=== PATIENT | male | born 2000 | race American Indian/Alaskan Native ===

== ENCOUNTER 2022-01-13 15:06 | Emergency (ER) | payer SELFPAY ==
--- NOTE | 2022-01-13 17:06 | Emergency Department Report ---
Blank Doc - Documentation Documentation: 21-year-old male that presents with right shoulder pain. Exam shows suspected dislocation 1- This is a initial triage assessment/medical screening only. Full assessment and work-up will be completed once the patient is in proper hospital gown, ED bed and in a private room setting. This initial assessment/diagnostic orders/clinical plan/ treatment(s) is/are subject to change based on pt's health status, clinical progression and re-assessment by fellow clinical providers in the ED. Further treatment and workup at subsequent clinical providers discretion. Patient/guardians urged not to elope from ED as their condition may be serious if not clinically assessed and managed. 2-x-rays The patient was evaluated in the emergency department for symptoms described in the history of present illness. He/she was evaluated in the context of the global COVID-19 pandemic, which necessitated consideration that the patient might be at risk for infection with the virus that causes COVID-19. Institutional protocols and algorithms that pertain to the evaluation of patients at risk for COVID-19 are in a state of rapid change based on information released by regulatory bodies including the CDC and federal and state organizations. These policies and algorithms were followed during the patient's care in the emergency department. Please note that these policies, procedures and recommendations changed on a rapid basis.
--- NOTE | 2022-01-13 17:24 | XRay Report ---
RIGHT SHOULDER 3 VIEW(S) INDICATION / CLINICAL INFORMATION: right shoulder pain. COMPARISON: None available. FINDINGS: BONES / JOINT(S): There is anterior inferior dislocation of the humeral head with respect to the tavares oid. No fracture is seen. No significant arthritis. SOFT TISSUES: No significant abnormality. ADDITIONAL FINDINGS: None. IMPRESSION: 1. Anterior right shoulder dislocation. Signer Name: Neo Joya MD Signed: 01/13/2022 5:20 PM Workstation Name: [id number]
[2022-01-13] MEDS ORDERED: KETAMINE 500 MG/5 ML VIAL MDV IV ONE (17:37)
[2022-01-13] MEDS ORDERED: propofoL 200 MG/20 ML VIAL IV ONE (17:37)
[2022-01-13] MEDS ORDERED: SODIUM CHLORIDE 0.9% 500 ML 500 ML IV ONE (17:37)
[2022-01-13] MEDS ORDERED: ONDANSETRON 4 MG/2 ML INJ IV ONE (17:41)
[2022-01-13] MEDS ORDERED: fentaNYL 100 MCG/2 ML INJ IV ONE (17:41)
--- NOTE | 2022-01-13 18:02 | Emergency Department Report ---
ED Upper Extremity Inj HPI - General Chief Complaint: Extremity Injury, Upper Stated Complaint: SHOULDER INJURY Time Seen by Provider: 01/13/22 16:21 Source: patient, EMS Mode of arrival: Ambulatory Limitations: No Limitations - History of Present Illness Initial Comments: 21-year-old [id number] male with no significant past medical history presents the hospital complaiislocationning of right shoulder pain and deformity that occurred while playing basketball at the gym. Pain is moderate in intensity and worse with movement. no other injury reported. No previous history of right shoulder dislocation - Related Data Previous Rx's Medication Instructions Recorded Last Taken Type Ibuprofen [Motrin] 800 mg PO Q8HR PRN #20 tablet 01/13/22 Unknown Rx Allergies Allergy/AdvReac Type Severity Reaction Status Date / Time No Known Allergies Allergy Verified 01/13/22 15:08 ED Review of Systems ROS: Stated complaint: SHOULDER INJURY Other details as noted in HPI Comment: All other systems reviewed and negative ED Past Medical Hx - Past Medical History Previous Medical History?: No - Social History Smoking Status: Never Smoker - Medications Home Medications: Home Medications Medication Instructions Recorded Confirmed Last Taken Type Ibuprofen [Motrin] 800 mg PO Q8HR PRN #20 tablet 01/13/22 Unknown Rx ED Physical Exam - General Limitations: No Limitations - Other Other exam information: General: No acute distress Head: Atraumatic Eyes: normal appearance ENT: Moist mucous membranes Neck: Normal appearance, no midline tenderness Chest: Clear to auscultation bilaterally CV: Regular rate and rhythm Abdomen: Soft, normal bowel sounds, nontender, nondistended, no rebound or guarding Back: Normal inspection Extremity: Right shoulder deformity. Sensation over deltoid and forearm intact Neuro: Alert O x 3, no facial asymmetry, speech clear, no gross motor sensory deficit Psych: Appropriate behavior Skin: No rash ED Course Vital Signs 01/13/22 01/13/22 01/13/22 15:07 17:24 17:58 Temperature 97.6 F Temperature [ Intra-Procedure ] Temperature [ Post-Procedure] Temperature [ Pre-Procedure] Pulse Rate 68 Pulse Rate [ Intra-Procedure ] Pulse Rate [ Post-Procedure] Pulse Rate [Pre -Procedure] Respiratory 18 22 Rate Respiratory Rate [Intra- Procedure] Respiratory Rate [Post- Procedure] Respiratory Rate [Pre- Procedure] Blood Pressure Blood Pressure [Intra- Procedure] Blood Pressure 110/66 [Left] Blood Pressure [Post-Procedure ] Blood Pressure [Pre-Procedure] O2 Sat by Pulse 97 98 Oximetry O2 Sat by Pulse Oximetry [ Intra-Procedure ] O2 Sat by Pulse Oximetry [Post -Procedure] O2 Sat by Pulse Oximetry [Pre- Procedure] 01/13/22 01/13/22 01/13/22 18:00 18:06 18:10 Temperature Temperature [ Intra-Procedure ] Temperature [ Post-Procedure] Temperature [ Pre-Procedure] Pulse Rate 52 L Pulse Rate [ Intra-Procedure ] Pulse Rate [ Post-Procedure] Pulse Rate [Pre -Procedure] Respiratory 26 H 14 Rate Respiratory Rate [Intra- Procedure] Respiratory Rate [Post- Procedure] Respiratory Rate [Pre- Procedure] Blood Pressure 134/80 132/72 Blood Pressure [Intra- Procedure] Blood Pressure [Left] Blood Pressure [Post-Procedure ] Blood Pressure [Pre-Procedure] O2 Sat by Pulse 100 100 Oximetry O2 Sat by Pulse Oximetry [ Intra-Procedure ] O2 Sat by Pulse Oximetry [Post -Procedure] O2 Sat by Pulse Oximetry [Pre- Procedure] 01/13/22 01/13/22 01/13/22 18:16 18:20 18:25 Temperature Temperature [ Intra-Procedure ] Temperature [ Post-Procedure] Temperature [ 98.1 F Pre-Procedure] Pulse Rate 45 L 50 L Pulse Rate [ Intra-Procedure ] Pulse Rate [ Post-Procedure] Pulse Rate [Pre 49 L -Procedure] Respiratory 18 14 Rate Respiratory Rate [Intra- Procedure] Respiratory Rate [Post- Procedure] Respiratory 20 Rate [Pre- Procedure] Blood Pressure 129/72 121/76 Blood Pressure [Intra- Procedure] Blood Pressure [Left] Blood Pressure [Post-Procedure ] Blood Pressure 136/79 [Pre-Procedure] O2 Sat by Pulse 100 100 Oximetry O2 Sat by Pulse Oximetry [ Intra-Procedure ] O2 Sat by Pulse Oximetry [Post -Procedure] O2 Sat by Pulse 100 Oximetry [Pre- Procedure] 01/13/22 01/13/22 01/13/22 18:26 18:30 18:36 Temperature Temperature [ 98.0 F Intra-Procedure ] Temperature [ Post-Procedure] Temperature [ Pre-Procedure] Pulse Rate 47 L 85 73 Pulse Rate [ 60 Intra-Procedure ] Pulse Rate [ Post-Procedure] Pulse Rate [Pre -Procedure] Respiratory 23 15 17 Rate Respiratory 22 Rate [Intra- Procedure] Respiratory Rate [Post- Procedure] Respiratory Rate [Pre- Procedure] Blood Pressure 126/76 136/79 134/82 Blood Pressure 134/82 [Intra- Procedure] Blood Pressure [Left] Blood Pressure [Post-Procedure ] Blood Pressure [Pre-Procedure] O2 Sat by Pulse 100 100 100 Oximetry O2 Sat by Pulse 100 Oximetry [ Intra-Procedure ] O2 Sat by Pulse Oximetry [Post -Procedure] O2 Sat by Pulse Oximetry [Pre- Procedure] 01/13/22 01/13/22 01/13/22 18:40 18:46 18:50 Temperature Temperature [ Intra-Procedure ] Temperature [ 98.2 F Post-Procedure] Temperature [ Pre-Procedure] Pulse Rate 64 62 49 L Pulse Rate [ Intra-Procedure ] Pulse Rate [ 67 50 L Post-Procedure] Pulse Rate [Pre -Procedure] Respiratory 11 L 17 19 Rate Respiratory Rate [Intra- Procedure] Respiratory 20 20 Rate [Post- Procedure] Respiratory Rate [Pre- Procedure] Blood Pressure 146/86 139/82 133/89 Blood Pressure [Intra- Procedure] Blood Pressure [Left] Blood Pressure 139/82 142/92 [Post-Procedure ] Blood Pressure [Pre-Procedure] O2 Sat by Pulse 76 L 97 96 Oximetry O2 Sat by Pulse Oximetry [ Intra-Procedure ] O2 Sat by Pulse 100 100 Oximetry [Post -Procedure] O2 Sat by Pulse Oximetry [Pre- Procedure] 01/13/22 01/13/22 01/13/22 18:56 19:00 19:06 Temperature Temperature [ Intra-Procedure ] Temperature [ Post-Procedure] Temperature [ Pre-Procedure] Pulse Rate 46 L 69 57 L Pulse Rate [ Intra-Procedure ] Pulse Rate [ 69 Post-Procedure] Pulse Rate [Pre -Procedure] Respiratory 13 22 17 Rate Respiratory Rate [Intra- Procedure] Respiratory 22 Rate [Post- Procedure] Respiratory Rate [Pre- Procedure] Blood Pressure 133/89 133/89 133/89 Blood Pressure [Intra- Procedure] Blood Pressure [Left] Blood Pressure 133/89 [Post-Procedure ] Blood Pressure [Pre-Procedure] O2 Sat by Pulse 98 88 87 Oximetry O2 Sat by Pulse Oximetry [ Intra-Procedure ] O2 Sat by Pulse 99 Oximetry [Post -Procedure] O2 Sat by Pulse Oximetry [Pre- Procedure] 01/13/22 01/13/22 01/13/22 19:10 19:16 19:20 Temperature Temperature [ Intra-Procedure ] Temperature [ Post-Procedure] Temperature [ Pre-Procedure] Pulse Rate 49 L 59 L 60 Pulse Rate [ Intra-Procedure ] Pulse Rate [ Post-Procedure] Pulse Rate [Pre -Procedure] Respiratory 13 14 20 Rate Respiratory Rate [Intra- Procedure] Respiratory Rate [Post- Procedure] Respiratory Rate [Pre- Procedure] Blood Pressure 133/89 133/89 133/89 Blood Pressure [Intra- Procedure] Blood Pressure [Left] Blood Pressure [Post-Procedure ] Blood Pressure [Pre-Procedure] O2 Sat by Pulse 87 97 98 Oximetry O2 Sat by Pulse Oximetry [ Intra-Procedure ] O2 Sat by Pulse Oximetry [Post -Procedure] O2 Sat by Pulse Oximetry [Pre- Procedure] 01/13/22 01/13/22 19:26 19:30 Temperature Temperature [ Intra-Procedure ] Temperature [ Post-Procedure] Temperature [ Pre-Procedure] Pulse Rate 88 57 L Pulse Rate [ Intra-Procedure ] Pulse Rate [ Post-Procedure] Pulse Rate [Pre -Procedure] Respiratory 15 14 Rate Respiratory Rate [Intra- Procedure] Respiratory Rate [Post- Procedure] Respiratory Rate [Pre- Procedure] Blood Pressure 133/89 133/89 Blood Pressure [Intra- Procedure] Blood Pressure [Left] Blood Pressure [Post-Procedure ] Blood Pressure [Pre-Procedure] O2 Sat by Pulse 98 100 Oximetry O2 Sat by Pulse Oximetry [ Intra-Procedure ] O2 Sat by Pulse Oximetry [Post -Procedure] O2 Sat by Pulse Oximetry [Pre- Procedure] - Moderate Sedation Indications: fracture/dislocation redu ASA Class: I Mallampati Airway Score: 1 Preparation: cardiac nurse applied, pulse oximeter, supplemental O2 applied, reversal agents at bedside, suction/airway equipment at bedside, IV secured Ketamine: IV Ketamine Dose: 35 IV Propofol Dose (mgs): 35 Complications: none Patient Tolerated Procedure: well, no complications - Orthopedic Joint Reduction Joint #1 Consent Obtained: written consent Time Out Performed: Yes Side: right Joint Reduction Location: shoulder Analgesia: moderate sedation Shoulder Technique Used (if applicable): external rotation Technique Used: traction/counter-traction, direct manipulation Post-Reduction Neuro Exam: intact Post-Reduction Vascular Exam: intact Post Reduction X-Ray Obtained: Yes Post Reduction X-Ray Results: reduced Splint Applied: Yes Patient Tolerated Procedure: well Additional Comments: Procedure start time 18:29 stop time 18:36 Right shoulder immobilizer placed after successful reduction ED Medical Decision Making - Radiology Data Radiology results: report reviewed RIGHT SHOULDER 3 VIEW(S) INDICATION / CLINICAL INFORMATION: right shoulder pain. COMPARISON: None available. FINDINGS: BONES / JOINT(S): There is anterior inferior dislocation of the humeral head with respect to the glenoid. No fracture is seen. No significant arthritis. SOFT TISSUES: No significant abnormality. ADDITIONAL FINDINGS: None. IMPRESSION: 1. Anterior right shoulder dislocation. RIGHT SHOULDER, SINGLE VIEW INDICATION / CLINICAL INFORMATION: post reduction. COMPARISON: Right shoulder radiographs earlier today. FINDINGS: Single view of the right shoulder post reduction shows successful relocation of the glenohumeral joint of the shoulder. On this single view there is no visible fracture. Alignment is now normal. IMPRESSION: Successful reduction of previously noted anteriorly dislocated shoulder. - Medical Decision Making 21-year-old male status post right shoulder dislocation with successful reduction in the consultation. Patient alert and oriented with steady gait at time of disposition. His girlfriend is going to take him home. Right-sided shoulder immobilizer placed after reduction. Outpatient follow-up advised with orthopedics Critical Care Time: No Critical care attestation.: If time is entered above; I have spent that time in minutes in the direct care of this critically ill patient, excluding procedure time. ED Disposition Clinical Impression: Dislocation of shoulder, right, closed Disposition: 01 HOME / SELF CARE / HOMELESS Is pt being admited?: No Does the pt Need Aspirin: No Condition: Stable Instructions: Shoulder Dislocation, [id number], Moderate Conscious Sedation, Adult, Care After Additional Instructions: Take the medication as prescribed. Follow-up with your doctor or doctor/clinic provided. Return if symptoms worsen as indicated by your discharge inst ructions. Prescriptions: Ibuprofen [Motrin] 800 mg PO Q8HR PRN #20 tablet PRN Reason: Pain , Severe (7-10) Referrals: [facility] [Provider Group] - 3-5 Days CIARAN MENDOZA MD [Staff Physician] - 3-5 Days Time of Disposition: 20:00
[2022-01-13] MEDS ORDERED: KETOROLAC 30 MG/1 ML INJ IV ONE (18:53)
--- NOTE | 2022-01-13 18:59 | XRay Report ---
RIGHT SHOULDER, SINGLE VIEW INDICATION / CLINICAL INFORMATION: post reduction. COMPARISON: Right shoulder radiographs earlier today. FINDINGS: Single view of the right shoulder post reduction shows successful relocation of the glenohumeral join t of the shoulder. On this single view there is no visible fracture. Alignment is now normal. IMPRESSION: Successful reduction of previously noted anteriorly dislocated shoulder. Signer Name: Dennise Rosado MD Signed: 01/13/2022 6:54 PM Workstation Name: [id number]
[2022-01-13 19:12] VITALS: BP 133/89
== END 2022-01-13 21:00 | disposition home or self-care (01) ==
LOC: ED 15:06
DX: S43.004A Unspecified dislocation of right shoulder joint, initial encounter (principal); X58.XXXA Exposure to other specified factors, initial encounter; Y93.89 Activity, other specified; Y92.89 Other specified places as the place of occurrence of the external cause; Y99.8 Other external cause status
CPT/HCPCS: 23650; 73020; 73030; 96374; 96375; 99284; J2405; J2704; J3010; J3490; J7040